=== PATIENT | female | born 1950 ===

== ENCOUNTER 2022-03-12 17:52 | Emergency (ER) | payer MEDICARE ==
[2022-03-12 18:24] VITALS: BP 166/79
--- NOTE | 2022-03-13 11:13 | Electrocardiograph Report ---
[facility] Test Date: 2022-03-12 Test Time: 18:15:41 Pat Name: JOSÉ LUIS DONG Department: Room: Gender: F Booking Agent: TOM : 1950 Requested By: TORIBIO HARTLEY Order Number: [id number] Reading MD: Erasmo Grigsg Measurements Intervals [place] Rate: 73 P: 51 WA: 179 QRS: -7 QRSD: 92 T: 65 QT: 337 QTc: 372 Interpretive Statements Sinus rhythm Low voltage, precordial leads No previous ECG available for comparison Electronically Signed On 03-13-2022 11:12:57 EDT by Erasmo Griggs
== END 2022-03-13 14:16 | disposition left against medical advice (07) ==
LOC: ED 17:52
DX: R07.9 Chest pain, unspecified (principal); Z53.21 Procedure and treatment not carried out due to patient leaving prior to being seen by health care provider
CPT/HCPCS: 93005